=== PATIENT | female | born 1960 | race Two or more races ===

== ENCOUNTER 2020-09-20 15:13 | Inpatient (IN) | payer OTHER ==
[~2020-09-20] VITALS: Ht 157.5 cm; Wt 70.0 kg
[2020-09-20 16:52] LABS: Urine Bacteria FEW /hpf (None Seen); Urine Blood 1+ /uL (Negative); Urine Specific Gravity 1.018 (1.001-1.035); Urine WBC 2 /hpf (0 - 5)
[2020-09-20 17:16] LABS: Albumin 3.9 g/dL (3.4-5.0); Anion Gap 8 (5-15); Blood Urea Nitrogen 20 mg/dL (7-18); Calcium 10.2 mg/dL (8.5-10.1); Carbon Dioxide 29 mmol/L (21-32); Chloride 101 mmol/L (98-107); Glucose 112 mg/dL (74-106); INR 0.97 (0.9-1.15); Partial Thromboplastin Time 25.6 sec (23.0-31.2); Potassium 3.7 mmol/L (3.5-5.1); Sodium 138 mmol/L (136-145)
[2020-09-20 17:17] LABS: Basophils # (auto) 0.1 10 ^3/uL (0-0.2); Basophils % (auto) 1.2 % (0.0-2.0); Eosinophils # (auto) 0.3 10 ^3/uL (0-0.8); Eosinophils % (auto) 5.2 % (0.0-7.0); Hematocrit 43.7 % (36.0-46.0); Hemoglobin 14.7 g/dL (12.2-16.2); Lymphocytes % (auto) 34.4 % (10.0-50.0); Mean Corpuscular Hgb Conc. 33.5 g/dL (32.0-36.0); Mean Corpuscular Volume 89.5 fL (80.0-100.0); Monocytes # (auto) 0.6 10 ^3/uL (0-1.3); Monocytes % (auto) 10.5 % (0.0-12.0); Neutrophils # (auto) 2.8 10 ^3/uL (1.6-8.6); Neutrophils % (auto) 48.7 % (37.0-80.0); Nucleated Red Blood Cells % 0.1 %; Platelet Count (auto) 259 10^3/uL (140-450); Red Blood Cells 4.88 10^6/uL (4.0-5.20); Red Cell Distribution Width 13.5 % (11.8-14.3); White Blood Cell 5.7 10^3/uL (4.4-10.8)
[2020-09-20 17:18] LABS: BUN/Creatinine Ratio 23.8; GFR African American 89 mL/min; GFR Non-African American 74 mL/min
[2020-09-20 17:23] LABS: Alanine Aminotransferase 23 U/L (13-56); Alkaline Phosphatase 158 U/L (45-117); Aspartate Aminotransferase 19 U/L (15-37); Bilirubin, Total 0.3 mg/dL (0.2-1.0)
[2020-09-20] MEDS ORDERED: cefTRIAXone 1GM/50ML D5W 50 ML IV ONE (18:00)
[2020-09-20] MEDS ORDERED: SODIUM CHLORIDE 0.9% 1,000 ML IV ONE ×2 (18:30)
[2020-09-20] MEDS ORDERED: hydrALAZINE HCL 20 MG/ML VL IV PRN (21:15)
[2020-09-20] MEDS ORDERED: ALBUTEROL SULF 2.5 MG/0.5ML(0.5%) NEB SOLN NEB PRN (21:15)
[2020-09-20] MEDS: SODIUM CHLORIDE 0.9% 1,000 ML IV SCH (21:15)
[2020-09-20] MEDS ORDERED: LORazepam 0.5 MG TAB PO PRN (21:15)
[2020-09-20] MEDS ORDERED: ACETAMINOPHEN 500 MG TAB PO PRN (21:15)
[2020-09-20] MEDS ORDERED: DOCUSATE CALCIUM 240 MG CAP PO PRN (21:15)
[2020-09-20] MEDS ORDERED: NITROGLYCERIN 0.4 MG SL TAB SL PRN (21:15)
[2020-09-20] MEDS: MORPHINE SULF INJ 2 MG/ML SYRINGE 1ML IV PRN ×2 (22:57→23:35)
[2020-09-20 23:30] VITALS: BP 131/68
[2020-09-21] MEDS: MORPHINE SULF INJ 2 MG/ML SYRINGE 1ML IV PRN ×6 (00:23→20:57)
[2020-09-21] MEDS ORDERED: ESCI10TA PO (02:54)
[2020-09-21] MEDS ORDERED: TRAM50TA2 PO (02:54)
[2020-09-21] MEDS ORDERED: GABA300C10 PO (02:54)
[2020-09-21] MEDS ORDERED: CYCL10TA6 PO (02:54)
[2020-09-21] MEDS: SODIUM CHLORIDE 0.9% 1,000 ML IV SCH ×3 (05:11→21:15)
[2020-09-21 07:23] LABS: Basophils # (auto) 0 10 ^3/uL (0-0.2); Basophils % (auto) 0.5 % (0.0-2.0); Eosinophils # (auto) 0.1 10 ^3/uL (0-0.8); Eosinophils % (auto) 2.1 % (0.0-7.0); Hematocrit 40.2 % (36.0-46.0); Hemoglobin 13.6 g/dL (12.2-16.2); Lymphocytes # (auto) 1.3 10 ^3/uL (0.4-5.4); Lymphocytes % (auto) 29.4 % (10.0-50.0); Mean Corpuscular Hemoglobin 30.3 pg (28.0-32.0); Mean Corpuscular Hgb Conc. 33.8 g/dL (32.0-36.0); Mean Corpuscular Volume 89.6 fL (80.0-100.0); Monocytes # (auto) 0.5 10 ^3/uL (0-1.3); Monocytes % (auto) 10.9 % (0.0-12.0); Neutrophils # (auto) 2.4 10 ^3/uL (1.6-8.6); Neutrophils % (auto) 57.1 % (37.0-80.0); Platelet Count (auto) 201 10^3/uL (140-450); Red Blood Cells 4.48 10^6/uL (4.0-5.20); Red Cell Distribution Width 13.5 % (11.8-14.3); White Blood Cell 4.3 10^3/uL (4.4-10.8)
[2020-09-21 07:41] LABS: Partial Thromboplastin Time 26.5 sec (23.0-31.2); Potassium 3.8 mmol/L (3.5-5.1)
[2020-09-21 07:48] LABS: Albumin 3.3 g/dL (3.4-5.0); BUN/Creatinine Ratio 23.9; Bilirubin, Total 0.5 mg/dL (0.2-1.0); Calcium 9.2 mg/dL (8.5-10.1); Total Protein 7.2 g/dL (6.4-8.2)
[2020-09-21 07:49] VITALS: BP 116/66
[2020-09-21 07:51] VITALS: BP 116/66
[2020-09-21] MEDS: cefTRIAXone 1GM/50ML D5W 50 ML IV SCH (10:23)
[2020-09-21] MEDS: PANTOPRAZOLE 40 MG TAB PO SCH (10:23)
[2020-09-21] MEDS: ENOXAPARIN SOD 40 MG/0.4 ML SYRINGE SC SCH (10:23)
[2020-09-21] MEDS: CITALOPRAM HYDROBR 20 MG TAB PO SCH (10:23)
[2020-09-21] MEDS: GABAPENTIN 300 MG CAP PO SCH ×2 (13:35→21:50)
[2020-09-21] MEDS ORDERED: DORZ2SOL18 EACHEYE (13:45)
[2020-09-21] MEDS ORDERED: GASTROGRAFIN 120 ML SOL ONE (14:52)
[2020-09-21 16:00] VITALS: BP 144/77
[2020-09-21] MEDS: LATANOPROST 0.005 % OPTH(EYE) SOL 2.5ML EACHEYE SCH (21:48)
[2020-09-21] MEDS: DORZOLAMIDE HCL 2% OPTH(EYE) SOL 10ML EACHEYE SCH (21:49)
[2020-09-21] MEDS: BRIMONIDINE 0.2% OPTH Soln 5ml EACHEYE SCH (21:49)
[2020-09-21 22:00] VITALS: BP 133/75
[2020-09-21] MEDS ORDERED: BRIMONIDINE 0.2% OPTH Soln 5ml EACHEYE SCH (22:00)
[2020-09-21] MEDS ORDERED: LATANOPROST 0.005 % OPTH(EYE) SOL 2.5ML EACHEYE SCH (22:00)
[2020-09-21] MEDS ORDERED: DORZOLAMIDE HCL 2% OPTH(EYE) SOL 10ML EACHEYE ONE (22:00)
[2020-09-22] MEDS: MORPHINE SULF INJ 2 MG/ML SYRINGE 1ML IV PRN ×3 (01:03→21:06)
[2020-09-22 05:00] VITALS: BP 127/90
[2020-09-22] MEDS: SODIUM CHLORIDE 0.9% 1,000 ML IV SCH ×3 (05:15→21:07)
[2020-09-22] MEDS: GABAPENTIN 300 MG CAP PO SCH ×3 (05:55→21:06)
[2020-09-22 06:59] LABS: Basophils # (auto) 0 10 ^3/uL (0-0.2); Basophils % (auto) 0.8 % (0.0-2.0); Eosinophils # (auto) 0.2 10 ^3/uL (0-0.8); Eosinophils % (auto) 4.7 % (0.0-7.0); Hematocrit 38.1 % (36.0-46.0); Hemoglobin 13.1 g/dL (12.2-16.2); Lymphocytes # (auto) 1.3 10 ^3/uL (0.4-5.4); Lymphocytes % (auto) 30.1 % (10.0-50.0); Mean Corpuscular Hemoglobin 30.7 pg (28.0-32.0); Mean Corpuscular Hgb Conc. 34.5 g/dL (32.0-36.0); Mean Corpuscular Volume 88.9 fL (80.0-100.0); Monocytes # (auto) 0.5 10 ^3/uL (0-1.3); Monocytes % (auto) 11.6 % (0.0-12.0); Neutrophils # (auto) 2.2 10 ^3/uL (1.6-8.6); Neutrophils % (auto) 52.8 % (37.0-80.0); Nucleated Red Blood Cells % 0.1 %; Platelet Count (auto) 209 10^3/uL (140-450); Red Blood Cells 4.28 10^6/uL (4.0-5.20); Red Cell Distribution Width 13.4 % (11.8-14.3); White Blood Cell 4.2 10^3/uL (4.4-10.8)
[2020-09-22 07:21] LABS: Albumin 3.3 g/dL (3.4-5.0); Calcium 9.2 mg/dL (8.5-10.1); Potassium 3.2 mmol/L (3.5-5.1)
[2020-09-22 07:26] LABS: BUN/Creatinine Ratio 22.2; Bilirubin, Total 0.6 mg/dL (0.2-1.0)
[2020-09-22 07:47] VITALS: BP 128/74
[2020-09-22] MEDS: BRIMONIDINE 0.2% OPTH Soln 5ml EACHEYE SCH ×2 (08:57→21:05)
[2020-09-22] MEDS: cefTRIAXone 1GM/50ML D5W 50 ML IV SCH (08:57)
[2020-09-22] MEDS: DORZOLAMIDE HCL 2% OPTH(EYE) SOL 10ML EACHEYE SCH ×2 (08:57→21:06)
[2020-09-22] MEDS: ENOXAPARIN SOD 40 MG/0.4 ML SYRINGE SC SCH (10:35)
[2020-09-22] MEDS: CITALOPRAM HYDROBR 20 MG TAB PO SCH (10:36)
[2020-09-22] MEDS: PANTOPRAZOLE 40 MG TAB PO SCH (10:36)
[2020-09-22] MEDS ORDERED: POTASSIUM EFFERVESENT TAB 25 MEQ PO ONE (11:45)
[2020-09-22 16:00] VITALS: BP 107/69
[2020-09-22] MEDS: LATANOPROST 0.005 % OPTH(EYE) SOL 2.5ML EACHEYE SCH (21:06)
[2020-09-22 21:56] VITALS: BP 146/64
[2020-09-23] MEDS: SODIUM CHLORIDE 0.9% 1,000 ML IV SCH ×3 (05:18→21:16)
[2020-09-23] MEDS: GABAPENTIN 300 MG CAP PO SCH ×3 (05:19→21:36)
[2020-09-23] MEDS: MORPHINE SULF INJ 2 MG/ML SYRINGE 1ML IV PRN ×2 (05:20→09:49)
[2020-09-23 05:58] VITALS: BP 129/72
[2020-09-23 06:33] LABS: Basophils # (auto) 0.1 10 ^3/uL (0-0.2); Basophils % (auto) 1.4 % (0.0-2.0); Eosinophils # (auto) 0.3 10 ^3/uL (0-0.8); Eosinophils % (auto) 9.2 % (0.0-7.0); Hematocrit 38.4 % (36.0-46.0); Lymphocytes # (auto) 1.2 10 ^3/uL (0.4-5.4); Lymphocytes % (auto) 31.7 % (10.0-50.0); Mean Corpuscular Hemoglobin 30.3 pg (28.0-32.0); Mean Corpuscular Hgb Conc. 33.9 g/dL (32.0-36.0); Mean Corpuscular Volume 89.4 fL (80.0-100.0); Monocytes # (auto) 0.5 10 ^3/uL (0-1.3); Monocytes % (auto) 12.9 % (0.0-12.0); Neutrophils # (auto) 1.7 10 ^3/uL (1.6-8.6); Neutrophils % (auto) 44.8 % (37.0-80.0); Platelet Count (auto) 208 10^3/uL (140-450); Red Blood Cells 4.29 10^6/uL (4.0-5.20); Red Cell Distribution Width 13.3 % (11.8-14.3); White Blood Cell 3.7 10^3/uL (4.4-10.8)
[2020-09-23 06:43] LABS: BUN/Creatinine Ratio 11.3; Calcium 9.5 mg/dL (8.5-10.1); Potassium 3.5 mmol/L (3.5-5.1)
[2020-09-23 08:00] VITALS: BP_SYST 133; BP_DIAS 75; BP_DIAS 76
[2020-09-23] MEDS: cefTRIAXone 1GM/50ML D5W 50 ML IV SCH (09:47)
[2020-09-23] MEDS: CITALOPRAM HYDROBR 20 MG TAB PO SCH (09:48)
[2020-09-23] MEDS: PANTOPRAZOLE 40 MG TAB PO SCH (09:48)
[2020-09-23] MEDS: BRIMONIDINE 0.2% OPTH Soln 5ml EACHEYE SCH ×2 (09:48→21:36)
[2020-09-23] MEDS: ENOXAPARIN SOD 40 MG/0.4 ML SYRINGE SC SCH (09:48)
[2020-09-23] MEDS: DORZOLAMIDE HCL 2% OPTH(EYE) SOL 10ML EACHEYE SCH ×2 (09:48→21:36)
[2020-09-23] MEDS ORDERED: GOLYTELY 4L KIT PO ONE (12:30)
[2020-09-23] MEDS ORDERED: MORPHINE SULFATE 4 MG/ML SYR/VIAL IV PRN (14:30)
[2020-09-23 16:00] VITALS: BP 129/74
[2020-09-23 16:02] LABS: Hepatitis B Surface Antibody Negative
[2020-09-23 16:30] LABS: Hepatitis A Total Antibody Negative
[2020-09-23 16:52] LABS: Hepatitis A Ab IgM Negative
[2020-09-23 16:53] LABS: Hepatitis B Core Total AB Negative; Hepatitis B Surface Antigen Negative (Negative); Hepatitis C Antibody Negative (Negative)
[2020-09-23 16:54] LABS: Hepatitis B Core IgM Negative
[2020-09-23] MEDS: traMADol HCL 50 MG TAB PO PRN (21:12)
[2020-09-23] MEDS: LATANOPROST 0.005 % OPTH(EYE) SOL 2.5ML EACHEYE SCH (21:36)
[2020-09-23 22:00] VITALS: BP 120/72
[2020-09-24] MEDS: traMADol HCL 50 MG TAB PO PRN ×3 (03:50→19:51)
[2020-09-24] MEDS ORDERED: MAGNESIUM CITRATE SOLUTION 300 ML BTL PO ONE (05:00)
[2020-09-24] MEDS: SODIUM CHLORIDE 0.9% 1,000 ML IV SCH ×2 (05:01→13:15)
[2020-09-24] MEDS: GABAPENTIN 300 MG CAP PO SCH ×3 (05:31→21:36)
[2020-09-24 06:00] VITALS: BP 115/68
[2020-09-24] MEDS ORDERED: GOLYTELY 4L KIT PO ONE (06:00)
[2020-09-24 08:00] VITALS: BP 122/68
[2020-09-24 08:03] LABS: Basophils # (auto) 0.1 10 ^3/uL (0-0.2); Basophils % (auto) 1.3 % (0.0-2.0); Eosinophils # (auto) 0.3 10 ^3/uL (0-0.8); Eosinophils % (auto) 6.6 % (0.0-7.0); Hematocrit 38.5 % (36.0-46.0); Hemoglobin 13.1 g/dL (12.2-16.2); Lymphocytes # (auto) 1.2 10 ^3/uL (0.4-5.4); Lymphocytes % (auto) 27.4 % (10.0-50.0); Mean Corpuscular Hemoglobin 30.5 pg (28.0-32.0); Mean Corpuscular Hgb Conc. 34.1 g/dL (32.0-36.0); Mean Corpuscular Volume 89.6 fL (80.0-100.0); Monocytes # (auto) 0.5 10 ^3/uL (0-1.3); Monocytes % (auto) 10.8 % (0.0-12.0); Neutrophils # (auto) 2.4 10 ^3/uL (1.6-8.6); Neutrophils % (auto) 53.9 % (37.0-80.0); Nucleated Red Blood Cells % 0.2 %; Platelet Count (auto) 211 10^3/uL (140-450); Red Blood Cells 4.29 10^6/uL (4.0-5.20); Red Cell Distribution Width 13.4 % (11.8-14.3); White Blood Cell 4.5 10^3/uL (4.4-10.8)
[2020-09-24] MEDS ORDERED: SODIUM CHLORIDE LOCK 10 ML ONE (08:18)
[2020-09-24] MEDS ORDERED: NALOXONE HCL 0.4 MG/ML VIAL ONE (08:21)
[2020-09-24] MEDS ORDERED: FLUMAZENIL 0.1 MG/ML INJ 10ML MDV IV ONE (08:21)
[2020-09-24 08:33] LABS: BUN/Creatinine Ratio 7.5; Calcium 9.7 mg/dL (8.5-10.1); Potassium 3.5 mmol/L (3.5-5.1)
[2020-09-24] MEDS: cefTRIAXone 1GM/50ML D5W 50 ML IV SCH (09:00)
[2020-09-24] MEDS: MIDAZOLAM HCL 5 MG/ML-1ML VIAL ONE ×2 (09:34→09:37)
[2020-09-24] MEDS: diphenhdrAMINE HCL 50 MG/1 ML VL ONE ×2 (09:34→09:37)
[2020-09-24] MEDS: fentaNYL CITRATE 100 MCG/2 ML VL ONE ×2 (09:34→09:37)
[2020-09-24] MEDS: BRIMONIDINE 0.2% OPTH Soln 5ml EACHEYE SCH ×2 (11:04→21:36)
[2020-09-24] MEDS: CITALOPRAM HYDROBR 20 MG TAB PO SCH (11:05)
[2020-09-24] MEDS: DORZOLAMIDE HCL 2% OPTH(EYE) SOL 10ML EACHEYE SCH ×2 (11:05→21:36)
[2020-09-24] MEDS: ENOXAPARIN SOD 40 MG/0.4 ML SYRINGE SC SCH (11:06)
[2020-09-24] MEDS: PANTOPRAZOLE 40 MG TAB PO SCH (11:06)
[2020-09-24 13:00] VITALS: BP 156/92
[2020-09-24 17:00] VITALS: BP 120/64
[2020-09-24] MEDS: LATANOPROST 0.005 % OPTH(EYE) SOL 2.5ML EACHEYE SCH (21:36)
[2020-09-24 22:00] VITALS: BP 102/54
[2020-09-25 05:00] VITALS: BP 101/56
[2020-09-25] MEDS: GABAPENTIN 300 MG CAP PO SCH ×2 (05:45→13:24)
[2020-09-25] MEDS: traMADol HCL 50 MG TAB PO PRN ×2 (05:45→13:24)
[2020-09-25 07:28] LABS: Albumin 3.2 g/dL (3.4-5.0); BUN/Creatinine Ratio 10.8; Bilirubin, Total 0.4 mg/dL (0.2-1.0); Calcium 9.5 mg/dL (8.5-10.1); Total Protein 6.7 g/dL (6.4-8.2)
[2020-09-25 08:00] VITALS: BP 128/52
[2020-09-25] MEDS: PANTOPRAZOLE 40 MG TAB PO SCH (10:55)
[2020-09-25] MEDS: cefTRIAXone 1GM/50ML D5W 50 ML IV SCH (10:55)
[2020-09-25] MEDS: BRIMONIDINE 0.2% OPTH Soln 5ml EACHEYE SCH (10:55)
[2020-09-25] MEDS: DORZOLAMIDE HCL 2% OPTH(EYE) SOL 10ML EACHEYE SCH (10:55)
[2020-09-25] MEDS: CITALOPRAM HYDROBR 20 MG TAB PO SCH (10:55)
[2020-09-25] MEDS: ENOXAPARIN SOD 40 MG/0.4 ML SYRINGE SC SCH (10:56)
[2020-09-25 12:24] LABS: Cholesterol 123 mg/dL (< 200); HDL Cholesterol 48 mg/dL (40-59); LDL Cholesterol 70 mg/dL (< 100); Triglycerides 34 mg/dL (< 150)
[2020-09-25 15:37] VITALS: BP 117/68
[2020-09-25 15:46] VITALS: BP 117/68
[2020-09-25 16:17] VITALS: BP_SYST 115; BP_SYST 141; BP_DIAS 55; BP_DIAS 71
== END 2020-09-25 16:53 | disposition home or self-care (01) | DRG 393 ==
LOC: ER 15:13 → OVERFLOW 15:14 → EAST 23:23
PROVIDERS: ADMIT Family Medicine; ATTEND Internal Medicine
PROC: 0DCH8ZZ Extirpation of Matter from Cecum, Via Natural or Artificial Opening Endoscopic (ICD-10-PCS; principal; 2020-09-24 09:34)
DX: T18.4XXA Foreign body in colon, initial encounter (principal); N17.0 Acute kidney failure with tubular necrosis; N30.00 Acute cystitis without hematuria; S76.911A Strain of unspecified muscles, fascia and tendons at thigh level, right thigh, initial encounter; G25.81 Restless legs syndrome; H40.9 Unspecified glaucoma; N18.9 Chronic kidney disease, unspecified; E87.6 Hypokalemia; M25.551 Pain in right hip; G47.30 Sleep apnea, unspecified; Z20.822 Contact with and (suspected) exposure to COVID-19; W18.39XA Other fall on same level, initial encounter; F32.9 Major depressive disorder, single episode, unspecified; K64.9 Unspecified hemorrhoids; Z83.3 Family history of diabetes mellitus; Z90.49 Acquired absence of other specified parts of digestive tract; Z98.84 Bariatric surgery status; Z90.710 Acquired absence of both cervix and uterus; Y93.89 Activity, other specified; Y92.89 Other specified places as the place of occurrence of the external cause; Y99.8 Other external cause status
CPT/HCPCS: 36415; 71045; 73502; 74018; 74021; 74176; 74250; 76705; 80048; 80053; 80061; 80074; 81001; 82306; 83036; 84443; 84484; 85025; 85610; 85730; 86704; 86706; 86708; 86803; 86850; 86900; 86901; 87086; 87340; 96365; 96366; 96372; 96375; 96376; G0378; J0696; J2250